=== PATIENT | male | born 1965 | race Caucasian/White ===

== ENCOUNTER 2018-04-18 11:51 | Day surgery (SDC) | payer BC ==
[2018-04-18] MEDS ORDERED: LIDOCAINE 1% MDV (10MG/ML) 20ML VIAL SQ ONE (11:52)
[2018-04-18] MEDS ORDERED: PROPOFOL 10 MG/ML VIAL IV ONE (11:52)
--- NOTE | 2018-04-19 13:20 | Operative Note ---
DATE OF SURGERY: 04/18/2018 OPERATION: COLONOSCOPY to the cecum with cold snare polypectomy x2 and cold biopsy forceps polypectomy x1. INDICATION: Colorectal cancer screening. The patient's last examination was completed in [place] and was probably 10 years or less ago. He denies any current GI issues. ANESTHESIA: Intravenous sedation was administered by the department of anesthesiology and included Diprivan titrated to effect. PROCEDURE: Following informed consent from this alert individual including a discussion of the risks and benefits of the procedure and an opportunity for the patient to ask questions, the patient was in the left lateral decubitus position. A digital rectal examination was performed. No abnormalities were noted. Following this, the Olympus [id number] video colonoscope was inserted into the rectum without resistance. The rectal mucosa had a normal appearance with normal folds and distensibility. The colonoscope was advanced up through the bowel to the level of the cecum without much difficulty. Throughout the bowel the mucosa appeared normal, the folds were normal, and the bowel was fairly well distensible. The cecum was defined by noting the appendiceal orifice and ileocecal valve. Retroflexion in the cecum was endoscopically unremarkable. From the base of the cecum, the colonoscope was then withdrawn. There were 3 polyps noted in the ascending colon measuring between 3-5 mm in size. The 2 larger polyps were removed with cold snare polypectomy and the smaller polyp with biopsy forceps. No other changes were noted upon withdrawal. The colonoscope was moved into the cecum where retroflexion accomplished following air insufflation demonstrated external hemorrhoids which were best seen upon withdrawal through the anus. The instrument was withdrawn. The colon preparation was good. The patient tolerated the procedure well and was returned to the recovery area in stable condition. IMPRESSION: 1. Three ascending colon polyps measuring between 3-5 mm in size, one removed with biopsy forceps and two with cold snare polypectomy. 2. External hemorrhoids. RECOMMENDATIONS: The patient was advised he should receive a copy of his pathology report at home in the next 2-3 weeks. If not, he was asked to call my office to review the results of testing today. Followup will also be with Dagoberto Bailon MD. As always, thank you for allowing me to participate in the care of your patient. CC: MD DAVE Aquino
== END 2018-04-18 15:54 | disposition home or self-care (01) ==
LOC: HOP 11:51
PROVIDERS: ATTEND Internal Medicine Gastroenterology
DX: Z12.11 Encounter for screening for malignant neoplasm of colon (principal); D12.2 Benign neoplasm of ascending colon; K64.4 Residual hemorrhoidal skin tags; I10 Essential (primary) hypertension